=== PATIENT | female | born 1950 | race Caucasian/White ===

== ENCOUNTER → 2017-02-24 | Outpatient (CLI) | payer OTHER ==
[~2017-02-24] MED LIST: METFORMIN HCL500 MG PO; PROTONIX20 MG PO; SIMVASTATIN10 M1 PO
== END | disposition home or self-care (01) ==
LOC: MA 08:45
PROC: BH02ZZZ Plain Radiography of Bilateral Breasts (ICD-10-PCS; principal; 2017-02-24)
DX: Z12.39 Encounter for other screening for malignant neoplasm of breast (principal)
CPT/HCPCS: G0202

== ENCOUNTER 2018-03-01 10:24 | Emergency (ER) | payer OTHER ==
[~2018-03-01] VITALS: Ht 157.5 cm; Wt 71.4 kg
[2018-03-01 10:28] VITALS: BP 161/77; Ht 157.5 cm; Wt 71.4 kg
== END 2018-03-01 12:46 | disposition home or self-care (01) ==
LOC: ED 10:24
DX: S62.615A Displaced fracture of proximal phalanx of left ring finger, initial encounter for closed fracture (principal); W18.39XA Other fall on same level, initial encounter; Y93.89 Activity, other specified; Y92.89 Other specified places as the place of occurrence of the external cause; Y99.8 Other external cause status
CPT/HCPCS: J2001; J3490